=== PATIENT | female | born 1955 | race Caucasian/White ===

== ENCOUNTER 2017-08-23 08:42 | Outpatient (CLI) | payer BC ==
--- NOTE | 2017-08-23 09:13 | MMO ---
BILATERAL SCREENING MAMMOGRAM: HISTORY: A 62-year-old female for screening mammography. COMPARISON: 04/23/15, 03/26/13. FINDINGS: Bilateral MLO and CC views of the breasts show scattered fibroglandular breast tissue. There is no evidence of suspicious mass, suspicious clustered microcalcifications, or area of architectural dist ortion. Interpretation of this mammogram was performed with the assistance of computer-aided detection. IMPRESSION: BI-RADS category 1 - negative. Annual screening mammography is recommended. POS: PING
== END 2017-08-23 08:43 | disposition home or self-care (01) ==
LOC: SCSMAMMO 08:42
PROVIDERS: ATTEND Family Medicine
DX: Z12.31 Encounter for screening mammogram for malignant neoplasm of breast (principal)
CPT/HCPCS: 77067; G0202

== ENCOUNTER 2018-08-27 08:49 | Outpatient (CLI) | payer BC ==
--- NOTE | 2018-08-27 09:55 | MMO ---
BILATERAL SCREENING MAMMOGRAM: History: 63-year-old female screening mammography. Comparison: 03-26-13, 04-23-15, 08-23-17 Technique: CC and MLO views of both breasts were submitted for interpretation. This study is interpreted with th e assistance of computer aided detection. FINDINGS: Breasts are composed of scattered fibroglandular tissue. Bilaterally, no suspicious mass, architectur al or suspicious calcifications. IMPRESSION: BIRADS category 1 - negative exam. RECOMMENDATION: Annual mammogram. POS: PING
== END 2018-08-27 08:50 | disposition home or self-care (01) ==
LOC: SCSMAMMO 08:49
PROVIDERS: ATTEND Family Medicine
DX: Z12.31 Encounter for screening mammogram for malignant neoplasm of breast (principal)
CPT/HCPCS: 77067